=== PATIENT | male | born 1970 | race Two or more races ===

== ENCOUNTER 2024-12-13 17:52 | Emergency (ER) | payer OTHER, SELFPAY ==
[2024-12-13 18:26] VITALS: BP 140/87; PULSE 95; RESP 18; TEMP 37.1; O2SAT 95; BMI 33.9
--- NOTE | 2024-12-13 18:41 | EDNOTE_ITS ---
Upper Respiratory Inf. RME/HPI General Chief Complaint: Flu Like Symptoms Stated Complaint: FEVER, SORE THROAT, COUGH X THURSDAY Time Seen by Provider: 12/13/24 18:38 Arrival date/time: 12/13/24 17:52 54M with no significant PMH presents to ED with 2 days of cough, sore throat, fevers/chills, and nasal congestion. Limitations: no limitations Related Data Previous Rx's ?Medication ?Instructions ?Recorded docusate sodium 100 mg capsule 100 mg PO QDAY #20 caps 10/14/22 (Colace) hydrocortisone 2.5 % topical cream 1 applic ME QDAY ME N hemorrhoids 10/14/22 with perineal applicator #30 grams (Anusol-HC) psyllium husk 3 gram/5.4 gram oral 1 tbsp PO QDAY #426 grams 10/14/22 powder ibuprofen 800 mg tablet 800 mg PO TID PRN pain #30 t abs 05/17/24 Allergies Allergy/AdvReac Type Severity Reaction Status Date / Time No Known Allergies Allergy Verified 12/13/24 17:53 Review of Systems Review of Systems Systems Reviewed: All systems reviewed, normal except as documented Constitutional Constitutional: Reports system reviewed and no additional complaints, except as documented, Reports as per HPI, Reports chills, Reports fever(s) and Denies headache(s) ENT Ears, Nose, Mouth, and Throat: Reports as per HPI, Denies disequilibrium, Denies headache(s), Reports nasal obstruction and Reports sore throat Cardiovascular Cardiovascular: Reports system reviewed and no additional complaints, except as documented, Denies chest pain and Denies dyspnea Respiratory Respiratory: Reports system reviewed and no additional complaints, except as documented, Reports as per HPI, Reports cough and Denies dyspnea Gastrointestinal Gastrointestinal: Reports system reviewed and no additional complaints, except as documented, Denies abdominal pain, Denies nausea and Denies vomiting Neurologic Neurologic: Reports system reviewed and no additional complaints, except as documented, Denies confusion, Denies disequilibrium and Denies headache(s) Psychiatric Psychiatric: Denies confusion Past Medical History Past Medical History CARDIAC: Negative Cardiac Disorders or Congestive Heart Failure RESPIRATORY: Negative Chronic Obstructive Pulmonary Disease (COPD) or Asthma GENITOURINARY: Negative Renal Disease ENDOCRINE: Negative Diabetes Mellitus Type 1 or Diabetes Mellitus Type 2 Social History SMOKING STATUS: Never smoker ED Exam General Limitations: Present no limitations General appearance: Present alert and in no apparent distress Head Head exam: Present atraumatic Eye Eye exam: Present normal appearance, PERRL and EOMI ENT ENT exam: Present normal exam, normal oropharynx and mucous membranes moist Neck Neck exam: Present normal inspection, full ROM and trachea midline Chest Chest inspection: Present normal inspection and symmetric chest wall rise Respiratory Respiratory exam: Present normal lung sounds bilaterally Cardiovascular Cardiovascular exam: Present regular rate, normal rhythm and normal heart sounds Abdominal Exam Abdominal exam: Present soft and normal bowel sounds Extremities Exam Extremities exam: Present normal inspection and full ROM Back Exam Back exam: Present normal inspection and full ROM Neurological Exam Neurological exam: Present alert, oriented X3 and CN II-XII intact Psychiatric Psychiatric exam: Present normal affect and normal mood Skin Skin exam: Present warm, dry, intact and normal color Course Quality Measures none Orders Category Date Time Status Bedside COVID-19 Antigen Test NOW Care 12/13/24 18:37 Active Bedside Influenza A&B Antigen Test NOW Care 12/13/24 18:20 Completed DiphenhydrAMINE [Benadryl] Med 12/13/24 19:04 Discontinued 25 mg PO X1 ONE Naproxen [Naprosyn] Med 12/13/24 19:04 Discontinued 500 mg PO X1 ONE Vital Signs Vital signs: Vital Signs Temperature 98.8 F 12/13/24 18:26 Pulse Rate 95 12/13/24 18:26 Respiratory Rate 18 12/13/24 18:26 Blood Pressure 140/87 H 12/13/24 18:26 Pulse Oximetry (%) 95 12/13/24 18:26 Oxygen Delivery Method Room Air 12/13/24 18:26 O2 at 95% on RA and WNLs Upper Respiratory Infection MDM Narrative MDM Narrative:: 54M with no significant PMH presents to ED with 2 days of cough, sore throat, fevers/chills, and nasal congestion. Physical exam reveals nasal congestion, but otherwise clear ENT and lungs. Patient is afebrile, calm, and alert. Swabs neg. Likely viral URI. Patient data External records reviewed:: [facility] previous records Clinical information provided by:: patient Social determinants that could affect healthcare access:: none Patient has the following chronic illnesses:: none How is presenting disease/condition affected by chronic disease/condition?: no chronic disease Evaluation data The following diagnostics were reviewed and interpreted by me:: lab results Lab and/or radiology exams considered but not ordered:: ordered Interpretation Summary: above Medications / Prescriptions Medications or Prescriptions considered but not ordered:: not ordered Medication administrations:: Medication Administration History Discontinued Medications Diphenhydramine HCl (Diphenhydramine 25 Mg Capsule) 25 mg PO X1 ONE Stop: 12/13/24 19:05 Naproxen (Naproxen 250 Mg Tablet) 500 mg PO X1 ONE Stop: 12/13/24 19:05 n/a Consultations Consultation(s) initiated? (list below): No Diagnosis Upper Respiratory Differential Diagnosis: upper respiratory infection, croup, otitis media, sinusitis, viral infection, bronchitis, influenza and pharyngitis Most likely diagnosis given after review of the tests above:: URI Admission Indicated Admission indicated?: not indicated Admission Request Was there a request for admission?: No Disposition Plan Disposition Plan: Discharge Discharge Attestation Discharge Attestation: The patient and all family members were given an opportunity to ask questions and understood the discharge instructions. Discharge instructions specifically effects, indications for sooner follow up or return to the emergency department, and the expected course of current diagnosis. Patient condition: Stable Discharge Plan Plan Patient Disposition: HOME (Self Care) Disposition Comment: Stable Prescriptions/Referrals Prescriptions/Med Rec: No Action ibuprofen 800 mg tablet 800 mg PO TID PRN (Reason: pain) Qty: 30 0RF hydrocortisone [Anusol-HC] 2.5 % cream with perineal applicator 1 applic ME QDAY PRN (Reason: hemorrhoids) Qty: 30 0RF docusate sodium [Colace] 100 mg capsule 100 mg PO QDAY Qty: 20 0RF psyllium husk 3 gram/5.4 gram powder 1 tbsp PO QDAY Qty: 426 0RF Rx Instructions: mix into at least 8 oz of water or juice before administering Referrals: No Primary/Family,Physician [Primary Care Provider] - In 1 week Problem List Clinical Impression: Upper respiratory infection Patient/Caregiver Discharge Instructions Education Materials: ED URI, Viral, No Abx (Adult) Additional Instructions: Please follow-up with PCP within 24-48 hours and return immediately if symptoms worsen. Ibuprofen/Tylenol can be used simultaneously for greater fever/pain control. Benadryl is good for cough, congestion, and sleep. Print Language: Bhutanese Stand Alone Forms: Patient Portal Info Letter HUE/KETAN Supervising Physician PA/FILM HISTORIAN Supervising Physician: Dr. Herrera
[2024-12-13] MEDS: DiphenhydrAMINE 25 MG CAPSULE PO (19:21)
[2024-12-13] MEDS: NAPROXEN 250 MG TABLET 500 MG PO (19:21)
== END 2024-12-13 19:29 | disposition home or self-care (01) ==
PROVIDERS: Emergency Provider Emergency Medicine
DX: J06.9 Acute upper respiratory infection, unspecified (principal)
CPT/HCPCS: 87400; 87811; 99283; A9270